=== PATIENT | male | born 2000 | race Caucasian/White ===

== ENCOUNTER 2019-04-21 07:46 | Outpatient (CLI) | payer BC ==
--- NOTE | 2019-04-21 09:18 | MRI ---
MR the lumbar spine without contrast: 04/21/2019 History: Low back pain radiating into the left leg, radiculopathy COMPARISON: None. TECHNIQUE: Multiplanar multisequence MR images were obtained of lumbar spine without IV contrast FINDINGS: On the basis of 5 lumbar type vertebral bodies, conus medullaris terminates at [id number] level. Sagittal STIR imaging demonstrates no focal area of osseous marrow edema. T12-L1:Intervertebral disc height and signal intensity grossly unremarkable. No central canal or neur al foraminal stenosis. L1-2:Intervertebral disc height and signal intensity within normal limits. No central canal or neural foraminal stenosis. L2-3:Intervertebral disc height and signal intensity within normal limits with no central canal or ne ural foraminal stenosis. L3-4:There is disc space narrowing and disc desiccation with disc bulge. There is a annular tear in t he central/left paracentral region with an associated left paracentral disc herniation demonstrating mild inferior migration. Disc material extends 7 mm inferior to the axial level of the superior endplate of the L4 vertebral body. There is a mild degree of associated central canal stenosis/left lateral recess stenosis. No significant neural foraminal stenosis. L4-5:There is disc space narrowing and disc desiccation with disc bulge. There is a left paracentral/ left foraminal annular tear with an associated disc herniation demonstrating mild inferior migration. This disc herniation measures 1.5 cm transverse dimension and 8 mm and AP dimension and le ads to prominent left lateral recess stenosis. No significant neural foraminal stenosis. L5-S1:Intervertebral disc height and signal intensity grossly unremarkable. No significant central ca nal or neural foraminal stenosis. Image retroperitoneal structures demonstrateno acute findings.. IMPRESSION: Lumbar disc disease noted at L3-4 and L4-5. The most significant finding is a relatively large disc h erniation in the left paracentral/left foraminal region at L4-5 with prominent left lateral recess stenosis.
== END 2019-04-21 07:47 | disposition home or self-care (01) ==
LOC: BICMRI 07:46
PROVIDERS: ATTEND Family Medicine
DX: M51.16 Intervertebral disc disorders with radiculopathy, lumbar region (principal); M48.061 Spinal stenosis, lumbar region without neurogenic claudication
CPT/HCPCS: 72148

== ENCOUNTER 2021-01-03 11:51 | Outpatient (CLI) | payer BC ==
[2021-01-03] MEDS ORDERED: Magnevist 469MG/ML 20 ML VIAL ONE (12:47)
== END 2021-01-03 11:52 | disposition home or self-care (01) ==
LOC: MRI 11:51
PROVIDERS: ATTEND Nurse Practitioner Acute Care
DX: R56.9 Unspecified convulsions (principal)
CPT/HCPCS: 70553; 95816